=== PATIENT | male | born 1960 | race Two or more races ===

== ENCOUNTER 2016-06-26 18:49 | Emergency (ER) | payer OTHER ==
[2016-06-26 20:04] LABS: % IMMATURE GRANULYOCYTES 0.3 % (0.0-1.1); ABSOLUTE IMMATURE GRANULOCYTES 0.02 10^3/uL (0.00-0.10); ADD DIFF? NO; ADD MORPH? NO; ADD SCAN? NO; ATYPICAL LYMPHOCYTE FLAG 10 (0-99); FRAGMENT RBC FLAG 0 (0-99); HEMATOCRIT 43.5 % (40.0-51.0); HEMOGLOBIN 14.9 g/dL (13.7-17.5); LEFT SHIFT FLG 0 (0-99); LIPEMIA HEMOLYSIS FLAG 90 (0-99); MEAN CELL HEMOGLOBIN 30.7 pg (27.9-34.1); MEAN CELL HEMOGLOBIN CONCENTR. 34.3 g/dL (32.4-36.7); MEAN CELL VOLUME 89.7 fL (81.5-99.8); MEAN PLATELET VOLUME 10.2 fL (8.7-11.7); PLATELET CLUMPS FLAG 10 (0-99); PLATELET COUNT 240 10^3/uL (150-400); RED BLOOD CELL COUNT 4.85 10^6/uL (4.40-6.38); RED CELL DISTRIBUTION WIDTH 12.5 % (11.5-15.2)
[2016-06-26] MEDS ORDERED: IOPAMIDOL (ISOVUE-300) 100 ML BTL IV ONE (20:32)
[2016-06-26] MEDS ORDERED: AMPICILLIN/SULBACTAM 3 GM in NS 100 ML IV ONE (20:38)
--- NOTE | 2016-06-26 21:31 | EDPHY ---
H & P Stated Complaint: Dental abcess;dentist started pt on antibx yesterday Source: Patient, Family Exam Limitations: Language barrier - Personal History Current Tetanus Diphtheria and Acellular Pertussis (TDAP): Yes - Medical/Surgical History Hx Asthma: No Hx Chronic Respiratory Disease: No Hx Diabetes: Yes Hx Cardiac Disease: No Hx Renal Disease: No Hx Cirrhosis: No Hx Alcoholism: No Hx HIV/AIDS: No Hx Splenectomy or Spleen Trauma: No Other PMH: DM2 - Social History Smoking Status: Never smoked Time Seen by Provider: 06/26/16 19:37 HPI/ROS: CHIEF COMPLAINT: Dental abscess HISTORY OF PRESENT ILLNESS: 55-year-old male presents emergency department with a dental abscess. Patient was seen by his dentist yesterday and started on amoxicillin. His dentist told him to come to the emergency department for any increased swelling or worsening symptoms. The patient reports his swelling has increased in the left side of his face. He denies fevers or chills, no nausea or vomiting. Patient has only taken 1 of his 3 doses of amoxicillin today, he took 2 doses yesterday. Patient has type 2 diabetes, non insulin- dependent. He denies difficulty opening his mouth, no difficulty breathing or swallowing. REVIEW OF SYSTEMS: A comprehensive 10 point review of systems is otherwise negative aside from elements mentioned in the history of present illness. (Eun Merino) - Physical Exam Exam: General: Alert, nontoxic. No respiratory distress, no difficulty breathing ENT: Tympanic membranes clear, external auditory canal, external ear and surrounding soft tissue including over the mastoid unremarkable. Nasopharynx is not injected, there is no rhinorrhea. Left sided facial swelling lateral to mandible with induration and tenderness. Tooth 18. Purulent drainage at medial aspect of tooth and gum. No visible abscess. No tonsillar hypertrophy. No asymmetry. The uvula is midline. No elevation of tongue. There is no hoarseness. No drooling, patient has good control of their oral secretions. No trismus. No stridor. Cardiac: Regular rate and rhythm. Respiratory: Lungs clear to auscultation bilaterally. Neurological: no meningismus. Skin: No rashes. (Eun Merino) Constitutional: Initial Vital Signs Temperature (C) 37 C 06/26/16 18:55 Heart Rate 84 06/26/16 18:55 Respiratory Rate 18 06/26/16 18:55 Blood Pressure 157/87 H 06/26/16 18:55 O2 Sat (%) 94 06/26/16 18:55 O2 Delivery Mode Room Air Allergies/Adverse Reactions: No Known Allergies Allergy (Verified 06/26/16 18:59) Home Medications: Medication Instructions Recorded Metformin HCl 12/16/15 Amoxicillin 500 mg PO 06/26/16 Hydrocodone/Acetaminophen 1 each PO 06/26/16 [Hydrocodon-Acetaminophen 5-325] Medical Decision Making - Diagnostics Imaging: Discussed imaging studies w/ call center dispatcher Radiologist ED Course/Re-evaluation: IV established, CBC and chemistry panel obtained showing normal creatinine, normal white blood cell count. CT maxillofacial with IV contrast has been ordered. The patient is given 3 g of Unasyn IV. I have consulted with Dr. Eric staton to about the CT scan, he is recommending continuing to drain the abscess if possible then irrigating this with an angiocath and normal saline and discharged home to follow up with his dentist tomorrow. Patient tolerated this well, he is discharged home with normal vital signs, no trismus, no evidence of Daniel's angina. He agrees to follow up with his dentist tomorrow and will return to the emergency department for any difficulty opening his mouth, fevers, difficulty swallowing or breathing. (Eun Merino) I also saw the patient while he was in the emergency department. And we discussed facial swelling and purulence. He does have significant facial swelling on the left. Examination of his mouth does show a draining abscess to the inside of his left cheek. The nurse practitioner and I discussed treatment plan including IV antibiotics and maxillofacial CT with then follow-up discussion with oral surgery. (Aj Garcia) Differential Diagnosis: Diagnosis considered but not limited to dental abscess, osteomyelitis, Daniel's angina (Eun Merino) - Data Points Laboratory Results: Laboratory Results 06/26/16 19:30 Medications Given: Discontinued Medications Ampicillin Sodium/Sulbactam (Sodium 3 gm/ Sodium Chloride) 100 mls @ 200 mls/ hr IV EDNOW ONE PRN Reason: Protocol Stop: 06/26/16 21:07 Last Admin: 06/26/16 20:55 Dose: 100 mls Departure - Departure Disposition: Home, Routine, Self-Care Clinical Impression: Dental abscess Condition: Good Instructions: Dental Abscess (ED) Additional Instructions: Take your antibiotics as prescribed 3 times a day, take 600 mg of ibuprofen every 8 hours with food for 3-5 days, take your pain medication as prescribed. Warm compresses to left side of face 5 times a day for 10 minutes. Follow-up with your dentist tomorrow. This is very important. He needs to removed this tooth. Bring your CT of your CT scan and report of your CT scan with you. Return to the emergency department for any worsening symptoms, difficulty breathing, difficulty swallowing, difficulty opening your mouth. Referrals: Xiomara Jimenes [Other] - As per Instructions
[2016-06-26 21:39] VITALS: BP 158/86; PULSE 65; RESP 20; TEMP 98.1; O2SAT 96
== END 2016-06-26 21:44 | disposition home or self-care (01) ==
DX: K04.7 Periapical abscess without sinus (principal); E11.9 Type 2 diabetes mellitus without complications; Z79.84 Long term (current) use of oral hypoglycemic drugs
CPT/HCPCS: 82947-QW; 96365; J0295; Q9967

== ENCOUNTER 2017-01-13 10:16 | Emergency (ER) | payer MEDICAID ==
[2017-01-13 10:24] VITALS: TEMP 99
--- NOTE | 2017-01-13 10:34 | CPEKG ---
Heart Rate: 63 RR Interval: 952 P-R Interval: 128 QRSD Interval: 88 QT Interval: 376 QTC Interval: 385 P Cannon Ball: 13 QRS Cannon Ball: 57 T Wave Cannon Ball: 14 EKG Severity - NORMAL ECG - EKG Impression: SINUS RHYTHM Electronically Signed By: Natalie Castro 13-Jan-2017 14:25:45
[2017-01-13 10:43] LABS: % IMMATURE GRANULYOCYTES 0.2 % (0.0-1.1); ABSOLUTE IMMATURE GRANULOCYTES 0.01 10^3/uL (0.00-0.10); ADD DIFF? NO; ADD MORPH? NO; ADD SCAN? NO; ATYPICAL LYMPHOCYTE FLAG 0 (0-99); FRAGMENT RBC FLAG 0 (0-99); HEMATOCRIT 42.4 % (40.0-51.0); HEMOGLOBIN 15.3 g/dL (13.7-17.5); LEFT SHIFT FLG 0 (0-99); LIPEMIA HEMOLYSIS FLAG 90 (0-99); MEAN CELL HEMOGLOBIN 31.9 pg (27.9-34.1); MEAN CELL HEMOGLOBIN CONCENTR. 36.1 g/dL (32.4-36.7); MEAN CELL VOLUME 88.3 fL (81.5-99.8); MEAN PLATELET VOLUME 10.3 fL (8.7-11.7); PLATELET CLUMPS FLAG 10 (0-99); PLATELET COUNT 205 10^3/uL (150-400); RED CELL DISTRIBUTION WIDTH 12.3 % (11.5-15.2)
[2017-01-13 11:07] LABS: ANION GAP 12 mEq/L (8-16); CALCIUM 9.4 mg/dL (8.5-10.4); CARBON DIOXIDE 18 mEq/l (22-31); CHLORIDE 106 mEq/L (97-110); CREATININE 0.9 mg/dL (0.7-1.3); GLOMERULAR FILTRATION RATE > 60; GLUCOSE 166 mg/dL (70-100); POTASSIUM 5.3 mEq/L (3.5-5.2); SODIUM 136 mEq/L (134-144); SPECIMEN HEMOLYSIS 157
[2017-01-13 11:19] LABS: TROPONIN I 0.012 ng/mL (0.000-0.034)
[2017-01-13] MEDS ORDERED: ASPIRIN 81 MG CHEWABLE TAB PO ONE (11:29)
[2017-01-13 11:35] VITALS: RESP 18; O2SAT 95
[2017-01-13] MEDS ORDERED: NITROGLYCERIN 0.4 MG BTL SL PRN (13:44)
--- NOTE | 2017-01-13 14:41 | ECHO ---
[email or web address] [address] [address] Main: [phone] Fax: Transthoracic Echocardiogram Name: SILVIO MOODY MR#: [id number] Study Date: 01/13/2017 Study Time: 02:18 PM Date of : 1960 Age: 56 year(s) Height: 162.6 cm (64 in.) Weight: 92.08 kg (203 lb.) BSA: 1.97 m2 Gender: Male Examination: Echo Indication: Chest Pain Image Quality: Contrast: Requested by: Sharita Knox BP: 127 mmHg/67 mmHg Heart Rate: Rhythm: Indication: Chest Pain Procedure Staff Model Set Artist: Swetha Marques Physician: Marcos Gore Requesting Provider: Conclusions: Normal size left ventricle. Normal global systolic LV function. The ejection fraction is estimated to be 65-70 %. No regional wall motion abnormality. There are no significant valvular abnormalities. Measurements: Chambers Valvular Assessment AV/MV Valvular Assessment TV/PV Normal Normal Normal Name Value Range Name Value Range Name Value Range Ao Whitney (MM): 3.5 cm (2.2 cm-3.7 AV Vmax: 1.60 m/s (1 m/s-1.7 TR Vmax: 2.48 mm/s ( - ) cm) m/s) TR PGmax: 25 mmHg ( - ) IVSd (2D): 0.8 cm (0.6 cm-1.1 AV maxP mmHg ( - ) syst. PAP: 30 mmHg ( - ) cm) AV meanP mmHg ( - ) LVDd (2D): 4.2 cm (4.2 cm-5.9 MV E Vmax: 0.99 m/s ( - ) cm) MV A Vmax: 1.01 m/s ( - ) LVDs (2D): 2.3 cm (2.1 cm-4 MV E/A: 0.98 ( - ) cm) LVPWd (2D): 0.7 cm (0.6 cm-1 cm) LVEF (MOD4): 72 % (>=55 %) EF Range: 65-70 % Continued Measurements: Chambers Valvular Assessment AV/MV Valvular Assessment TV/PV Name Value Name Value Name Value LADs: 3.6 cm MV E/E' Septal: 14.70 CVP (est.): 5 mmHg LADs Lon.7 cm MV E/E' Lateral: 9.60 LA Area: 19.5 cm2 Patient: SILVIO MOODY Study Date: 01/13/2017 Page 1 of 2 02:18 PM Findings: Left Ventricle: Normal size left ventricle. No LV hypertrophy. Normal global systolic LV function. The ejection fraction is estimated to be 65-70 %. No regional wall motion abnormality. Right Ventricle: Normal size right ventricle. Left Atrium: The left atrium is normal in size. Right Atrium: The right atrium is normal in size. Mitral Valve: The mitral valve is normal in appearance and function. Aortic Valve: The aortic valve is normal in appearance and function. Tricuspid Valve: The tricuspid valve is normal in appearance and function. Trivial tricuspid valve regurgitation. Pulmonic Valve: The pulmonic valve is normal in appearance and function. Trivial pulmonic valve regurgitation. Chest. Aorta: The aorta is normal. Pericardium: No pericardial effusion. (No Signature Object) Patient: SILVIO MOODY Study Date: 01/13/2017 Page 2 of 2 02:18 PM [id number]
[2017-01-13 14:51] VITALS: BP 139/73; PULSE 68
--- NOTE | 2017-01-13 15:02 | EDPHY ---
H & P Stated Complaint: 1 week cp/seen at last for same - Personal History Current Tetanus/Diphtheria Vaccine: Yes - Medical/Surgical History Hx Asthma: No Hx Chronic Respiratory Disease: No Hx Diabetes: Yes Hx Cardiac Disease: No Hx Renal Disease: No Hx Cirrhosis: No Hx Alcoholism: No Hx HIV/AIDS: No Hx Splenectomy or Spleen Trauma: No Other PMH: DM2 - Social History Smoking Status: Never smoked Time Seen by Provider: 01/13/17 11:04 HPI/ROS: CHIEF COMPLAINT: Chest pain HISTORY OF PRESENT ILLNESS: This is a 56-year-old male with complaint of left- sided chest pain that has been present for the past week. He describes the pain is constant, worse with deep breaths. The pain is located in left of his sternum in the upper chest. The pain does not radiate. He states that it is a dull aching type sensation. He has not had chest trauma. He denies cough or fever. He does not feel short of breath. He takes a daily aspirin. He has a personal history of [id number] diabetes mellitus, hypertension, and hyperlipidemia. He has a sister who at age 67 of a myocardial infarction. He has not had a stress test performed in the past. REVIEW OF SYSTEMS: A ten point review of systems was performed and is negative with the exception of the items mentioned in the HPI. Past medical history: 1. Diabetes mellitus on oral agents 2. Hypertension 3. Hyperlipidemia Past surgical history: Negative Family history: He has a sister who at age 67 of a myocardial infarction. His daughter had a cardiac transplant as an and at age 16. Social history: He is currently employed at a car [employer]. He does not use tobacco products. General Appearance: Alert. Vital signs reviewed. Blood pressure 172/74. Eyes: Pupils equal and round, no conjunctival injection, no discharge. Anicteric. ENT, Mouth: Mucous membranes are moist, no oropharyngeal erythema or edema. Neck: No lymphadenopathy, supple. Respiratory: Lungs are clear to auscultation; no wheezes, rales, or rhonchi. Cardiovascular: Regular rate and rhythm; no murmur, rub, or gallop. Thorax: No pain with palpation of the thorax. Gastrointestinal: Abdomen is soft and nontender, no masses or organomegaly, bowel sounds normal. Skin: Warm and dry, no rashes on exposed skin, normal color. Specifically, no vesicular lesions on the anterior left chest. Back: Nontender to palpation over the thoracolumbar spine. No CVAT. Extremities: No lower extremity edema, no calf tenderness or swelling. Neurological: Alert and oriented. Moving all four extremities easily and equally. Psychiatric: Normal affect. (Natalie Castro) Constitutional: Initial Vital Signs Temperature (C) 37.2 C 01/13/17 10:19 Heart Rate 71 01/13/17 10:19 Respiratory Rate 17 01/13/17 10:19 Blood Pressure 172/74 H 01/13/17 10:19 O2 Sat (%) 97 01/13/17 10:19 O2 Delivery Mode Room Air Allergies/Adverse Reactions: No Known Allergies Allergy (Verified 06/26/16 18:59) Home Medications: Medication Instructions Recorded Metformin HCl 12/16/15 Htn Med 01/13/17 Medical Decision Making - Diagnostics EKG Interpretation: 12 lead EKG is interpreted in Trace master View by emergency department physician. Sinus rhythm with a rate of 63 and no acute ischemic changes. ( Natalie Castro) ED Course/Re-evaluation: 56-year-old male with 1 week of ongoing left chest pain. He has multiple personal risk factors for coronary artery disease including diabetes, hypertension, and hyperlipidemia. He takes a daily aspirin. He was given aspirin in the emergency department. His EKG is without abnormality. An initial troponin is normal. Additional labs show slightly high potassium at 5.3 and a blood sugar of 166. CBC is normal. Chest x-ray is unrevealing/normal. No evidence of pneumothorax or infiltrate. Nothing to suggest congestive heart failure. D-dimer is normal and I do not think that this pain is the result of pulmonary embolus. Given his multiple risk factors I recommended hospitalization with troponin trending and provocative testing as needed. However, the patient is quite concerned about this, as he just started a new job and is very reluctant to miss work. I spoke with Sharita Knox, midlevel with [facility]. She was able to arrange an echocardiogram in the emergency department. This was performed and was reported as normal. Delmer Lisette then arranged stress testing for this patient. Patient's care is signed out to Dr. Kapadia prior to the completion of his stress testing. If his cardiac stress test is negative, he will be discharged home. He is noted to be hypertensive. He does take an antihypertensive medication. This might need to be followed up by his primary care physician. All of my patient interactions were carried out with the assistance of a Tajik cut in worker. (Natalie Castro) Differential Diagnosis: Chest pain including but not limited to myocardial ischemia, pulmonary embolus, chest wall pain, pleural inflammation and pulmonary infectious causes. (Natalie Castro) Other Provider: 3:30 p.m. care transferred to ak by Dr. Castro. Patient is currently having a stress test and plan is to discharge him it is unremarkable. 4:15 p.m. The patient's stress test was unremarkable. Cardiology service recommended that he be allowed to go home and follow up with his primary doctor. Also that he take his lisinopril daily. (Darwin Kapadia) - Data Points Laboratory Results: Laboratory Results 01/13/17 10:30 01/13/17 10:30 Medications Given: Discontinued Medications Aspirin (Aspirin) 324 mg PO EDNOW ONE Stop: 01/13/17 11:30 Last Admin: 01/13/17 11:34 Dose: 324 mg Nitroglycerin (Nitrostat) 0.4 mg SL Q5M PRN PRN Reason: Chest Pain Last Admin: 01/13/17 13:48 Dose: 0.4 mg Departure - Departure Disposition: Home, Routine, Self-Care Clinical Impression: Chest pain Qualifiers: Chest pain type: chest pain on breathing Qualified Code(s): R07.1 - Chest pain on breathing; R07.81 - Pleurodynia Condition: Good Instructions: Chest Pain (ED) Additional Instructions: We have not found up evidence of a problem with your heart, such as a heart attack. Please follow up with [facility] doctors at [facility]. Follow up with Cardiology as they advise. - No hemos encontrado evidencia de problemas con hernández lola, theresa un ataque de lola. - Por favor yady sigifredo negro de seguimiento con la clinica [facility]. Yady seguimiento con cardiologia theresa se le recomendo. Referrals: [facility] [Other] - As per Instructions Pedrito Garza MD [Medical Doctor] - As per Instructions Stand Alone Forms: Work Excuse Print Language: Tajik
--- NOTE | 2017-01-13 16:25 | PDCONSULT ---
Propeller Engineer Note: After informed consent was obtained, pt was exercised according to Cory Protocol. Monitoring was performed with standard stress cloth tester electrode placement. Vital signs were monitored according to protocol throughout the procedure. STRESS EKG AND HEMODYNAMIC DATA Exercise time: 6 min. This is equivalent to: 6.9 METS. Resting heart rate: 60 bpm. Resting blood pressure: 134/60 mmHg. Resting O2 saturation: 97 % Peak heart rate: 162 bpm. This is 100% of age predicted maximum heart rate response. Peak blood pressure: 240/60 mmHg. Exercise O2: 96 % Arrhythmias: None Reason for termination: The test was stopped due to target heart rate achieved. Symptoms: The patient experienced no typical symptoms of angina during stress or recovery. STRESS TEST ANALYSIS Baseline ECG: SR Stress ECG: sinus tach [address] depression Rhythm: No arrhythmias noted during exercise and recovery. Blood pressure: hypertensive blood pressure response to exercise. Exercise tolerance: The patient has not/ normal exercise tolerance adjusted for age and gender. Symptoms: No exercise induced symptoms. IMPRESSIONS: Stress ECG is negative for ischemia. The Schwarz Treadmill Score is 6, consistent with low cardiovascular risk (<1% annual mortality). Hypertensive blood pressure response to exercise (in setting of holding Lisinopril).
== END 2017-01-13 16:37 | disposition home or self-care (01) ==
DX: R07.1 Chest pain on breathing (principal); E11.9 Type 2 diabetes mellitus without complications; Z79.84 Long term (current) use of oral hypoglycemic drugs